=== PATIENT | female | born 1990 | race Caucasian/White ===

== ENCOUNTER 2018-08-28 17:13 | Emergency (ER) | payer OTHER ==
[2018-08-28] MEDS: SOD CHLORIDE 0.9% 1,000 ML IV (20:37)
[2018-08-28] MEDS: ONDANSETRON 4 MG INJ IV (20:37)
[2018-08-28] MEDS: ACETAMINOPHEN 325 MG TAB PO (20:38)
[2018-08-28 20:44] LABS: ADD MAN DIFF? NO
[2018-08-28 20:46] LABS: BASOPHIL # 0.1 10^3/ul (0.0-0.1); BASOPHILS % 0.5 % (0.0-2.0); EOSINOPHILS # 0.3 10^3/ul (0.0-0.5); EOSINOPHILS % 1.7 % (0.0-7.0); HEMATOCRIT 42.1 % (37.0-47.0); LYMPHOCYTES # 4.4 10^3/ul (0.8-2.9); LYMPHOCYTES % 28.1 % (15.0-51.0); MEAN CORPUSCULAR HEMOGLOBIN 28.3 pg (29.0-33.0); MEAN CORPUSCULAR HGB CONC 33.3 g/dl (32.0-37.0); MEAN CORPUSCULAR VOLUME 85.1 fl (82.0-101.0); MEAN PLATELET VOLUME 9.8 fl (7.4-10.4); MONOCYTE # 1.3 10^3/ul (0.3-0.9); MONOCYTES % 8.2 % (0.0-11.0); NEUTROPHIL # 9.5 10^3/ul (1.6-7.5); NEUTROPHILS % 60.7 % (39.0-77.0); PLATELET COUNT 412 10^3/UL (140-415); RED BLOOD COUNT 4.95 10^6/ul (4.20-5.40); RED CELL DISTRIBUTION WIDTH 13.4 % (11.5-14.5)
[2018-08-28 20:46] LABS: WHITE BLOOD COUNT 15.7 10^3/ul (4.8-10.8)
[2018-08-28 20:54] LABS: ADD UMIC NO; UR ASCORBIC ACID NEGATIVE (NEGATIVE); UR BILIRUBIN (Dip) NEGATIVE (NEGATIVE); UR BLOOD (Dip) NEGATIVE (NEGATIVE); UR CLARITY SLIGHTLY CLOUDY (CLEAR); UR COLOR YELLOW (YELLOW); UR GLUCOSE (Dip) NEGATIVE (NEGATIVE); UR KETONES (Dip) NEGATIVE (NEGATIVE); UR LEUKOCYTE ESTERASE (Dip) NEGATIVE Leu/ul (NEGATIVE); UR NITRITE (Dip) NEGATIVE (NEGATIVE); UR RBC 2 /HPF (0-5); UR SPECIFIC GRAVITY (Dip) 1.019 (1.003-1.030); UR SQUAMOUS EPITHELIAL CELL FEW /HPF (FEW); UR TOTAL PROTEIN (Dip) NEGATIVE (NEGATIVE); UR UROBILINOGEN (Dip) NEGATIVE (NEGATIVE); UR WBC 2 /HPF (0-5)
== END 2018-08-28 22:22 | disposition home or self-care (01) ==
LOC: FTE 17:13
DX: O99.89 Other specified diseases and conditions complicating pregnancy, childbirth and the puerperium (principal); M54.5 Low back pain; Z3A.08 8 weeks gestation of pregnancy
CPT/HCPCS: 36415; 76801; 81001; 81003; 84702; 85025; 86900; 86901; 96374; 99285-25

== ENCOUNTER 2018-09-25 15:39 | Inpatient (IN) | payer OTHER ==
[2018-09-25 18:03] LABS: ADD MAN DIFF? NO
[2018-09-25 18:07] LABS: WHITE BLOOD COUNT 13.1 10^3/ul (4.8-10.8)
[2018-09-25 18:08] LABS: BASOPHIL # 0.1 10^3/ul (0.0-0.1); BASOPHILS % 0.4 % (0.0-2.0); EOSINOPHILS # 0.3 10^3/ul (0.0-0.5); EOSINOPHILS % 2.3 % (0.0-7.0); HEMATOCRIT 37.6 % (37.0-47.0); LYMPHOCYTES # 2.8 10^3/ul (0.8-2.9); LYMPHOCYTES % 21.5 % (15.0-51.0); MEAN CORPUSCULAR HEMOGLOBIN 29.3 pg (29.0-33.0); MEAN CORPUSCULAR HGB CONC 34.6 g/dl (32.0-37.0); MEAN CORPUSCULAR VOLUME 84.7 fl (82.0-101.0); MEAN PLATELET VOLUME 10.5 fl (7.4-10.4); MONOCYTE # 1.1 10^3/ul (0.3-0.9); MONOCYTES % 8.4 % (0.0-11.0); NEUTROPHIL # 8.7 10^3/ul (1.6-7.5); NEUTROPHILS % 66.5 % (39.0-77.0); PLATELET COUNT 327 10^3/UL (140-415); RED BLOOD COUNT 4.44 10^6/ul (4.20-5.40); RED CELL DISTRIBUTION WIDTH 13.6 % (11.5-14.5)
[2018-09-25 18:17] LABS: HEMOGLOBIN A1C 5.8 % (0-5.9)
[2018-09-25 18:27] LABS: URIC ACID 4.4 mg/dl (3.1-7.9)
[2018-09-25 18:27] LABS: ADD UMIC NO; ALANINE AMINOTRANSFERASE 11 IU/L (13-69); ALBUMIN 3.6 g/dl (3.3-4.9); ALBUMIN/GLOBULIN RATIO 1.05; ALKALINE PHOSPHATASE 55 IU/L (42-121); ANION GAP 11 (5-13); ASPARTATE AMINO TRANSFERASE 24 IU/L (15-46); BILIRUBIN,INDIRECT 0.1 mg/dl (0-1.1); BILIRUBIN,TOTAL 0.1 mg/dl (0.2-1.3); BLOOD UREA NITROGEN 10 mg/dl (7-20); CALCIUM 9.1 mg/dl (8.4-10.2); CARBON DIOXIDE 23 mmol/L (21-31); CHLORIDE 102 mmol/L (97-110); CREATININE 0.47 mg/dl (0.44-1.00); Estimated GFR > 60 mL/min (>60); GLUCOSE 114 mg/dl (70-220); INR 0.97; SODIUM 136 mmol/L (135-144); UR ASCORBIC ACID 40 mg/dL (NEGATIVE); UR BILIRUBIN (Dip) NEGATIVE (NEGATIVE); UR BLOOD (Dip) NEGATIVE (NEGATIVE); UR CLARITY CLEAR (CLEAR); UR COLOR YELLOW (YELLOW); UR GLUCOSE (Dip) NEGATIVE (NEGATIVE); UR KETONES (Dip) TRACE mg/dL (NEGATIVE); UR LEUKOCYTE ESTERASE (Dip) NEGATIVE Leu/ul (NEGATIVE); UR NITRITE (Dip) NEGATIVE (NEGATIVE); UR SPECIFIC GRAVITY (Dip) 1.023 (1.003-1.030); UR TOTAL PROTEIN (Dip) NEGATIVE (NEGATIVE); UR UROBILINOGEN (Dip) NEGATIVE (NEGATIVE)
[2018-09-25 18:28] LABS: PARTIAL THROMBOPLASTIN TIME 29.7 Sec (23.0-35.0)
[2018-09-25] MEDS ORDERED: GLUCOSE GEL 15 GRAM TUBE BUCCAL ×2 (19:00→20:00)
[2018-09-25] MEDS ORDERED: DEXTROSE 50% 50 ML SYRINGE IV ×4 (19:00→20:00)
[2018-09-25] MEDS ORDERED: GLUCAGON 1 MG INJ IM ×2 (19:00→20:00)
[2018-09-25] MEDS ORDERED: GLUCOSE GEL 15 GRAM TUBE PO ×4 (19:00→20:00)
[2018-09-25] MEDS ORDERED: ACCU-CHEK XX (20:05)
[2018-09-25] MEDS: ACCU-CHEK XX (20:27)
[2018-09-25] MEDS ORDERED: INSULIN ASPART [NOVOLOG] 3 ML PEN SC (21:00)
[2018-09-26] MEDS: ACCU-CHEK XX ×4 (08:39→19:58)
[2018-09-26] MEDS: INSULIN ASPART [NOVOLOG] 3 ML PEN SC (08:40)
[2018-09-26] MEDS: FERROUS SULFATE (EC) 325 MG TAB PO (09:06)
[2018-09-26] MEDS: PRENATAL VITAMIN PO (09:06)
[2018-09-26] MEDS: FOLIC ACID 0.4 MG TAB PO (11:00)
[2018-09-26] MEDS ORDERED: CEPASTAT LOZENGE MT (14:00)
[2018-09-26] MEDS: GUAIFENESIN/DM 5ML CUP PO (14:52)
[2018-09-26 16:36] LABS: COLLECTION PERIOD 24 hrs
[2018-09-26 17:28] LABS: COLLECTION PERIOD 24 hrs; CREATININE CLEARANCE 256.3 mls/min (84.0-162.0); CREATININE,URINE RANDOM 51.02 mg/dl (20-320); SCRET 0.47 mg/dl (0.44-1.00); VOLUME 3400 ml/24hrs
[2018-09-26 17:29] LABS: VOLUME 3400 mls
[2018-09-26] MEDS: INSULIN LISPRO 100 UNIT/ML VIAL SC (18:21)
[2018-09-26] MEDS: NPH, HUMAN INSULIN ISOPHANE 3ML VIAL SC (20:54)
[2018-09-27] MEDS: ACCU-CHEK XX ×4 (08:50→19:55)
[2018-09-27] MEDS: NPH, HUMAN INSULIN ISOPHANE 3ML VIAL SC ×2 (08:52→21:15)
[2018-09-27] MEDS: FOLIC ACID 0.4 MG TAB PO (08:52)
[2018-09-27] MEDS: FERROUS SULFATE (EC) 325 MG TAB PO (08:53)
[2018-09-27] MEDS: PRENATAL VITAMIN PO (08:53)
[2018-09-27] MEDS: GUAIFENESIN/DM 5ML CUP PO (11:14)
[2018-09-27] MEDS: INSULIN LISPRO 100 UNIT/ML VIAL SC (17:45)
[2018-09-28] MEDS ORDERED: NPH, HUMAN INSULIN ISOPHANE 3ML VIAL SC (07:35)
[2018-09-28] MEDS: ACCU-CHEK XX ×3 (08:58→16:15)
[2018-09-28] MEDS: NPH, HUMAN INSULIN ISOPHANE 3ML VIAL SC (09:08)
[2018-09-28] MEDS: PRENATAL VITAMIN PO (09:15)
[2018-09-28] MEDS: FOLIC ACID 0.4 MG TAB PO (09:15)
[2018-09-28] MEDS: FERROUS SULFATE (EC) 325 MG TAB PO (09:15)
[2018-09-28] MEDS: GUAIFENESIN/DM 5ML CUP PO (11:00)
[2018-09-28] MEDS: INSULIN LISPRO 100 UNIT/ML VIAL SC (17:45)
== END 2018-09-28 18:46 | disposition home or self-care (01) | DRG 833 ==
LOC: OBT 15:39 → L-D 15:44 → OBT 16:20 → PP1 16:20
DX: O24.414 Gestational diabetes mellitus in pregnancy, insulin controlled (principal); Z3A.12 12 weeks gestation of pregnancy
CPT/HCPCS: 80053; 81003; 82575; 82962; 83036; 84156; 84560; 85025; 85384; 85610; 85730; 87086; 93005

== ENCOUNTER 2019-01-08 19:09 | Outpatient (CLI) | payer OTHER ==
[2019-01-08 20:47] LABS: ADD MAN DIFF? NO
[2019-01-08 20:50] LABS: WHITE BLOOD COUNT 11.2 10^3/ul (4.8-10.8)
[2019-01-08 20:50] LABS: BASOPHILS % 0.4 % (0.0-2.0); EOSINOPHILS # 0.2 10^3/ul (0.0-0.5); EOSINOPHILS % 2.1 % (0.0-7.0); HEMATOCRIT 34.3 % (37.0-47.0); HEMOGLOBIN 11.8 g/dl (12.0-16.0); LYMPHOCYTES # 2.7 10^3/ul (0.8-2.9); LYMPHOCYTES % 24.5 % (15.0-51.0); MEAN CORPUSCULAR HEMOGLOBIN 29.5 pg (29.0-33.0); MEAN CORPUSCULAR HGB CONC 34.4 g/dl (32.0-37.0); MEAN CORPUSCULAR VOLUME 85.8 fl (82.0-101.0); MEAN PLATELET VOLUME 10.2 fl (7.4-10.4); MONOCYTE # 1.1 10^3/ul (0.3-0.9); MONOCYTES % 9.4 % (0.0-11.0); NEUTROPHILS % 62.8 % (39.0-77.0); PLATELET COUNT 312 10^3/UL (140-415); RED CELL DISTRIBUTION WIDTH 13.5 % (11.5-14.5)
[2019-01-08 20:56] LABS: ADD UMIC NO; UR ASCORBIC ACID 40 mg/dL (NEGATIVE); UR BACTERIA FEW /HPF (NONE SEEN); UR BILIRUBIN (Dip) NEGATIVE (NEGATIVE); UR BLOOD (Dip) NEGATIVE (NEGATIVE); UR CLARITY SLIGHTLY CLOUDY (CLEAR); UR COLOR YELLOW (YELLOW); UR GLUCOSE (Dip) 1+ mg/dL (NEGATIVE); UR KETONES (Dip) TRACE mg/dL (NEGATIVE); UR LEUKOCYTE ESTERASE (Dip) NEGATIVE Leu/ul (NEGATIVE); UR NITRITE (Dip) NEGATIVE (NEGATIVE); UR RBC 1 /HPF (0-5); UR SPECIFIC GRAVITY (Dip) 1.023 (1.003-1.030); UR SQUAMOUS EPITHELIAL CELL FEW /HPF (FEW); UR TOTAL PROTEIN (Dip) NEGATIVE (NEGATIVE); UR UROBILINOGEN (Dip) 1+ mg/dL (NEGATIVE); UR WBC 3 /HPF (0-5)
[2019-01-08 21:12] LABS: ALANINE AMINOTRANSFERASE 20 IU/L (13-69); ALBUMIN 3.3 g/dl (3.3-4.9); ALBUMIN/GLOBULIN RATIO 0.97; ALKALINE PHOSPHATASE 89 IU/L (42-121); ANION GAP 6 (5-13); ASPARTATE AMINO TRANSFERASE 25 IU/L (15-46); BILIRUBIN,INDIRECT 0.2 mg/dl (0-1.1); BILIRUBIN,TOTAL 0.2 mg/dl (0.2-1.3); BLOOD UREA NITROGEN 8 mg/dl (7-20); CALCIUM 8.8 mg/dl (8.4-10.2); CARBON DIOXIDE 24 mmol/L (21-31); CHLORIDE 104 mmol/L (97-110); CREATININE 0.52 mg/dl (0.44-1.00); Estimated GFR > 60 mL/min (>60); GLUCOSE 121 mg/dl (70-220); POTASSIUM 3.6 mmol/L (3.5-5.1); SODIUM 134 mmol/L (135-144); TOTAL PROTEIN 6.7 g/dl (6.1-8.1); URIC ACID 4.1 mg/dl (3.1-7.9)
[2019-01-08] MEDS: ACETAMINOPHEN 500 MG TAB PO (21:33)
== END 2019-01-08 23:11 | disposition home or self-care (01) ==
LOC: OBT 19:09 → L-D 19:10 → OBT 23:11
DX: O13.2 Gestational [pregnancy-induced] hypertension without significant proteinuria, second trimester (principal); O24.414 Gestational diabetes mellitus in pregnancy, insulin controlled; O26.892 Other specified pregnancy related conditions, second trimester; R51 Headache; Z3A.27 27 weeks gestation of pregnancy
CPT/HCPCS: 76815; 76818; 80053; 81001; 81003; 84560; 85025